=== PATIENT | male | born 1985 | race Caucasian/White ===

== ENCOUNTER 2019-05-25 02:16 | Emergency (ER) | payer MEDICAID, OTHER ==
[~2019-05-25] VITALS: Ht 188 cm; Wt 77.3 kg
[~2019-05-25 02:16] MED LIST: HYDR-4383 PO; NO HOME MEDS
--- NOTE | 2019-05-25 02:32 | NUR ---
PT COOPERATIVE WITH STAFF - SO AT BEDSIDE
[2019-05-25] MEDS ORDERED: TETanus/Pertussis (Acell)/Diphther VAC/PF (Tdap-Adult) 0.5ml syringe IM ONE (03:25)
--- NOTE | 2019-05-25 03:30 | NUR ---
PT DISCHARGED TO [employer] WITH HALFWAY PACKET. OFFICERS INSTRUCTED TO GIVE MEDICAL RECORD PACKET TO HALFWAY NURSE UPON ARRIVAL. PT ASSISTED WITH GETTING PANTS BACK ON , OFFERED NON SKID SOCKS. PT AMBULATED OFF UNIT WITH STEADY GATE IN THE ACCOMPY OF [employer]
[2019-05-25 03:40] VITALS: BP 127/67
== END 2019-05-25 03:30 | disposition home or self-care (01) ==
LOC: ER 02:17
DX: S80.812A Abrasion, left lower leg, initial encounter (principal); F12.90 Cannabis use, unspecified, uncomplicated; F11.90 Opioid use, unspecified, uncomplicated; F17.200 Nicotine dependence, unspecified, uncomplicated; Z59.0 Homelessness; Z98.890 Other specified postprocedural states; W54.0XXA Bitten by dog, initial encounter; Y93.89 Activity, other specified; Y92.89 Other specified places as the place of occurrence of the external cause; Y99.9 Unspecified external cause status
CPT/HCPCS: 99284

== ENCOUNTER 2019-08-24 19:31 | Emergency (ER) | payer MEDICAID ==
[~2019-08-24] VITALS: Ht 188 cm; Wt 79.0 kg
[2019-08-24 19:48] VITALS: BP 106/83
[2019-08-24 22:36] LABS: BASOPHILS # (AUTO) 0.1 X10'3 (0-0.2); BASOPHILS % (AUTO) 1.5 % (0-1); EOSINOPHILS # (AUTO) 0.5 X10'3 (0-0.9); HEMATOCRIT 44.3 % (42.0-52.0); HEMOGLOBIN 15.3 g/dl (14.0-17.9); LYMPHOCYTES # (AUTO) 2.8 X10'3 (1.1-4.8); LYMPHOCYTES % (AUTO) 34.2 % (21-51); MEAN CORPUSCULAR HEMOGLOBIN 32.3 PG (27.0-31.0); MEAN CORPUSCULAR HGB CONC 34.6 g/dL (33.0-36.5); MEAN CORPUSCULAR VOLUME 93.3 FL (78-98); MEAN PLATELET VOLUME 8.2 FL (7.4-10.4); MONOCYTES # (AUTO) 0.7 X10'3 (0-0.9); MONOCYTES % (AUTO) 8.4 % (2-12); NEUTROPHILS % (AUTO) 49.9 % (42-75); PLATELET COUNT 224 X10'3 (140-440); RED BLOOD COUNT 4.75 X10'6 (4.70-6.10); RED CELL DISTRIBUTION WIDTH 13.3 % (11.5-14.5); WHITE BLOOD COUNT 8.1 X10'3 (4.5-11.0)
[2019-08-24 22:43] LABS: HIV ANTIBODY 1&2 RAPID NON-REACTIVE (Neg)
[2019-08-24 22:48] LABS: ALANINE AMINOTRANSFERASE 18 U/L (12-78); ALBUMIN 4.2 G/DL (3.4-5.0); ALBUMIN/GLOBULIN RATIO 1.4 (1.1-1.5); ALKALINE PHOSPHATASE 71 IU/L (46-116); ANION GAP 7 (8-16); ASPARTATE AMINO TRANSFERASE 16 U/L (10-37); BILIRUBIN,TOTAL 0.6 MG/DL (0.1-1.0); BLOOD UREA NITROGEN 17 MG/DL (7-18); BUN/CREATININE RATIO 18.7 (5.4-32.0); C-REACTIVE PROTEIN 0.21 MG/DL (0.0-0.5); CALCIUM 8.7 MG/DL (8.5-10.1); CHLORIDE 106 MMOL/L (99-107); CREATININE 0.91 MG/DL (0.60-1.10); GLUCOSE 85 MG/DL (70-104); SODIUM 140 MMOL/L (135-145); TOTAL CARBON DIOXIDE 27.5 MMOL/L (24-32); TOTAL PROTEIN 7.3 G/DL (6.4-8.2); eGFR > 90 ML/MIN
[2019-08-24 22:50] LABS: POTASSIUM 4.3 MMOL/L (3.5-5.1)
[2019-08-24] MEDS ORDERED: SULF1TAB49 PO (23:16)
[2019-08-26 07:06] LABS: RPR Non Reactive (Non Reactive)
== END 2019-08-24 23:46 | disposition home or self-care (01) ==
LOC: ER 19:32
DX: R21 Rash and other nonspecific skin eruption (principal); R42 Dizziness and giddiness; R53.83 Other fatigue; F12.90 Cannabis use, unspecified, uncomplicated; F15.90 Other stimulant use, unspecified, uncomplicated; F11.90 Opioid use, unspecified, uncomplicated; F10.99 Alcohol use, unspecified with unspecified alcohol-induced disorder; Z98.890 Other specified postprocedural states; Z59.0 Homelessness; Z79.899 Other long term (current) drug therapy; Y90.9 Presence of alcohol in blood, level not specified
CPT/HCPCS: 36415; 80053; 85025; 85651; 86140; 86592; 86703; 99284

== ENCOUNTER 2019-12-25 19:38 | Emergency (ER) | payer MEDICAID, OTHER ==
[~2019-12-25] VITALS: Ht 188 cm; Wt 77.3 kg
[2019-12-25] MEDS ORDERED: TETanus/Pertussis (Acell)/Diphther VAC/PF (Tdap-Adult) 0.5ml syringe IMVAC ONE (20:20)
[2019-12-25] MEDS ORDERED: LIDOcaine 1% W/epiNEPHrine 1:200,000 10ml vial IJ ONE ×2 (20:35→21:25)
[2019-12-25] MEDS ORDERED: AMOX-117 PO (21:41)
[2019-12-25] MEDS ORDERED: IBUP-1985 PO (21:41)
--- NOTE | 2019-12-25 22:19 | NUR ---
THE PA HAD ALREADY PLACED 10 CROW INTO THE PATIENT'S CROWN OF HEAD. THEY ARE INTACT. I HAD THE TECH RINSE THE PATIENT OFF OF BLOOD THAT WAS ON HIS BODY AND WRAP HIS HEAD LAC AND HE ALSO RECEIVED SUTURES TO HIS LEFT AC AREA AND THAT WAS WRAPPED AND HE HAS A SLING TO HIS LEFT ARM.
[2019-12-25 22:20] VITALS: BP 111/92
== END 2019-12-25 22:26 | disposition home or self-care (01) ==
LOC: ER 19:39
DX: S01.01XA Laceration without foreign body of scalp, initial encounter (principal); S51.812A Laceration without foreign body of left forearm, initial encounter; S41.112A Laceration without foreign body of left upper arm, initial encounter; F12.90 Cannabis use, unspecified, uncomplicated; F15.90 Other stimulant use, unspecified, uncomplicated; F11.90 Opioid use, unspecified, uncomplicated; Z59.0 Homelessness; Z79.2 Long term (current) use of antibiotics; Z79.899 Other long term (current) drug therapy; W54.0XXA Bitten by dog, initial encounter; Y93.89 Activity, other specified; Y92.89 Other specified places as the place of occurrence of the external cause; Y99.8 Other external cause status
CPT/HCPCS: 12002; 73060; 73080; 90715; 99284